=== PATIENT | female | born 1960 | race Caucasian/White ===

== ENCOUNTER → 2017-07-28 | Outpatient (CLI) | payer OTHER ==
[2017-07-28 10:29] LABS: BASOPHIL % 0.4 % (0-2); PLATELET COUNT 149 x10^3mcL (130-400)
[2017-07-28 10:56] LABS: ALBUMIN 3.7 g/dL (3.4-5.0); BILIRUBIN TOTAL 0.3 mg/dL (0.20-1.00); CALCIUM 9.3 mg/dL (8.5-10.1); CARBON DIOXIDE 31.5 mmol/L (21-32); CREATININE SERUM 1.1 mg/dL (0.6-1.0); POTASSIUM SERUM 4.2 mmol/L (3.5-5.1); TOTAL PROTEIN, SERUM 7.6 g/dL (6.4-8.2)
[2017-07-28 10:57] LABS: CHOLESTEROL/HDL RATIO 1.6
[2017-07-29 09:13] LABS: VITAMIN D 25-HYDROXY 61.7 ng/mL (30.0-100.0)
== END | disposition home or self-care (01) ==
LOC: MA 09:31
PROC: BH02ZZZ Plain Radiography of Bilateral Breasts (ICD-10-PCS; principal; 2017-07-28)
DX: Z01.419 Encounter for gynecological examination (general) (routine) without abnormal findings (principal)
CPT/HCPCS: 77067

== ENCOUNTER → 2017-09-14 | Outpatient (CLI) | payer OTHER | END | disposition home or self-care (01) | LOC: RD 20:05 | DX: M25.569 Pain in unspecified knee (principal); M79.672 Pain in left foot ==

== ENCOUNTER → 2017-10-16 | Outpatient (CLI) | payer OTHER | END | disposition home or self-care (01) | LOC: LB 20:19 | DX: Z11.51 Encounter for screening for human papillomavirus (HPV) (principal); Z11.59 Encounter for screening for other viral diseases | CPT/HCPCS: 86787 ==

== ENCOUNTER → 2018-08-08 | Outpatient (CLI) | payer OTHER | END | disposition home or self-care (01) | LOC: MA 13:22 | PROC: BH02ZZZ Plain Radiography of Bilateral Breasts (ICD-10-PCS; principal; 2018-08-08) | DX: Z01.419 Encounter for gynecological examination (general) (routine) without abnormal findings (principal); Z12.31 Encounter for screening mammogram for malignant neoplasm of breast | CPT/HCPCS: 77067 ==

== ENCOUNTER → 2018-08-16 | Outpatient (CLI) | payer OTHER ==
[2018-08-16 07:16] LABS: BASOPHIL % 0.7 % (0-2); PLATELET COUNT 170 x10^3mcL (130-400); RED CELL DISTRIBUTION WIDTH 14.4 % (11.5-14.5)
[2018-08-16 07:31] LABS: ALBUMIN 3.7 g/dL (3.4-5.0); ALKALINE PHOSPHATASE 74 U/L (46-116); ALT/SGPT 26 U/L (14-59); AST/SGOT 21 U/L (15-37); BILIRUBIN TOTAL 0.52 mg/dL (0.20-1.00); CALCIUM 9.3 mg/dL (8.5-10.1); CARBON DIOXIDE 34.4 mmol/L (21-32); CHLORIDE SERUM 103 mmol/L (98-107); CHOLESTEROL 142 mg/dL (<200); GFR1 > 60 mL/min; GLUCOSE SERUM 93 mg/dL (74-106); POTASSIUM SERUM 4.4 mmol/L (3.5-5.1); SODIUM SERUM 141 mmol/L (136-145); TOTAL PROTEIN, SERUM 7.6 g/dL (6.4-8.2); TRIGLYCERIDES 43 mg/dL (<150)
[2018-08-16 07:34] LABS: CHOLESTEROL/HDL RATIO 1.9; HDL CHOLESTEROL 74 mg/dL (40-60)
== END | disposition home or self-care (01) ==
LOC: LB 06:36
DX: Z01.419 Encounter for gynecological examination (general) (routine) without abnormal findings (principal)

== ENCOUNTER → 2019-08-02 | Outpatient (CLI) | payer OTHER ==
[2019-08-02 08:38] LABS: microscopic required? YES; urine erythrocyte NEGATIVE (NEGATIVE)
[2019-08-02 08:39] LABS: BASOPHIL % 0.3 % (0-2); PLATELET COUNT 148 x10^3mcL (130-400)
[2019-08-02 08:44] LABS: RED CELL DISTRIBUTION WIDTH 14.6 % (11.5-14.5)
[2019-08-02 09:13] LABS: ALBUMIN 3.5 g/dL (3.4-5.0); ALKALINE PHOSPHATASE 72 U/L (46-116); ALT/SGPT 27 U/L (14-59); AST/SGOT 22 U/L (15-37); BILIRUBIN TOTAL 0.3 mg/dL (0.20-1.00); CALCIUM 8.7 mg/dL (8.5-10.1); CARBON DIOXIDE 32.3 mmol/L (21-32); CHLORIDE SERUM 105 mmol/L (98-107); CHOLESTEROL 136 mg/dL (<200); CREATININE SERUM 0.9 mg/dL (0.6-1.0); FREE T4 0.88 ng/dL (0.76-1.46); GFR1 > 60 mL/min; GLUCOSE SERUM 86 mg/dL (74-106); HDL CHOLESTEROL 69 mg/dL (40-60); SODIUM SERUM 143 mmol/L (136-145); TOTAL PROTEIN, SERUM 7.3 g/dL (6.4-8.2); TRIGLYCERIDES 42 mg/dL (<150)
== END | disposition home or self-care (01) ==
LOC: LB 07:56
DX: Z00.00 Encounter for general adult medical examination without abnormal findings (principal); Z83.3 Family history of diabetes mellitus; Z12.11 Encounter for screening for malignant neoplasm of colon
CPT/HCPCS: 84439

== ENCOUNTER → 2019-09-26 | Outpatient (CLI) | payer OTHER | END | disposition home or self-care (01) | LOC: LB 07:23 | DX: E03.9 Hypothyroidism, unspecified (principal) ==

== ENCOUNTER → 2019-10-09 | Outpatient (CLI) | payer OTHER | END | disposition home or self-care (01) | LOC: MA 14:30 | PROC: BH02ZZZ Plain Radiography of Bilateral Breasts (ICD-10-PCS; principal; 2019-10-09) | DX: Z01.419 Encounter for gynecological examination (general) (routine) without abnormal findings (principal); Z12.31 Encounter for screening mammogram for malignant neoplasm of breast | CPT/HCPCS: 77067 ==

== ENCOUNTER → 2019-12-21 | Outpatient (CLI) | payer OTHER | END | disposition home or self-care (01) | LOC: RD 10:31 | DX: M25.562 Pain in left knee (principal) ==

== ENCOUNTER 2020-05-28 10:29 | Emergency (ER) | payer OTHER ==
[~2020-05-28] VITALS: Ht 172.7 cm; Wt 65.8 kg
[2020-05-28 10:37] VITALS: BP 132/81; Ht 172.7 cm; Wt 65.8 kg
[2020-05-28] MEDS ORDERED: NAPROSYN500 MG PO (12:32)
== END 2020-05-28 13:17 | disposition home or self-care (01) ==
LOC: ED 10:29
DX: S83.92XA Sprain of unspecified site of left knee, initial encounter (principal); M17.12 Unilateral primary osteoarthritis, left knee; X58.XXXA Exposure to other specified factors, initial encounter; Y93.89 Activity, other specified; Y92.89 Other specified places as the place of occurrence of the external cause; Y99.8 Other external cause status